=== PATIENT | male | born 1955 | race Two or more races ===

== ENCOUNTER 2019-07-28 07:44 | Emergency (ER) | payer OTHER ==
[~2019-07-28] VITALS: Ht 167.6 cm; Wt 54.4 kg
[~2019-07-28 07:44] MED LIST: ALLEGRA-D1 TAB.SR . PO; AURALGAN OTIC S14 ML OT; DIOVAN HCT 80/11 TA1; TRAMADOL HCL-AP1 TAB PO
[2019-07-28] MEDS ORDERED: ZITHROMAX500 MG PO (08:41)
== END 2019-07-28 09:08 | disposition home or self-care (01) ==
LOC: ER 07:44
DX: S01.321A Laceration with foreign body of right ear, initial encounter (principal); W45.8XXA Other foreign body or object entering through skin, initial encounter; Y93.89 Activity, other specified; Y92.89 Other specified places as the place of occurrence of the external cause; Y99.8 Other external cause status

== ENCOUNTER 2021-01-24 03:03 | Emergency (ER) | payer OTHER ==
[~2021-01-24] VITALS: Ht 167.6 cm; Wt 55.3 kg
[~2021-01-24 03:03] MED LIST changes: +ZITHROMAX500 MG PO
[2021-01-24] MEDS ORDERED: CIPRO500 MG PO (06:30)
[2021-01-27] MEDS ORDERED: CIPRO500 MG PO (02:08)
== END 2021-01-24 06:41 | disposition home or self-care (01) ==
LOC: ER 03:03
DX: N20.0 Calculus of kidney (principal); R10.32 Left lower quadrant pain

== ENCOUNTER → 2021-01-27 | Emergency (ER) | payer OTHER ==
[~2021-01-27] VITALS: Ht 167.6 cm; Wt 55.3 kg
[~2021-01-27] MED LIST changes: +CIPRO500 MG PO
== END | disposition home or self-care (01) ==
LOC: ER 00:18
DX: N20.0 Calculus of kidney (principal)

== ENCOUNTER 2023-02-25 05:30 | Day surgery (SDC) | payer OTHER ==
[~2023-02-25] VITALS: Ht 167.6 cm; Wt 56.7 kg
== END 2023-02-25 11:20 | disposition home or self-care (01) ==
LOC: CIR.AMB 05:30
PROVIDERS: ATTEND Specialist
DX: K40.90 Unilateral inguinal hernia, without obstruction or gangrene, not specified as recurrent (principal); Z20.822 Contact with and (suspected) exposure to COVID-19; Z88.2 Allergy status to sulfonamides; Z88.6 Allergy status to analgesic agent
CPT/HCPCS: 49505; C1781

== ENCOUNTER 2023-07-25 10:00 | Inpatient (IN) | payer OTHER ==
[~2023-07-25] VITALS: Ht 167.6 cm; Wt 54.0 kg
[~2023-07-25 10:00] MED LIST changes: +CHILDREN'S ASPI81 MG PO
[2023-07-25] MEDS ORDERED: GENTAMICIN SULFATE 40 MG/ML VIAL ONE (13:02)
[2023-07-25] MEDS ORDERED: CHLORHEXIDINE GLUCONATE 120 ML BOTTLE TOP ONE ×2 (16:21→17:15)
[2023-07-25] MEDS ORDERED: GENTAMICIN SULFATE 40 MG/ML VIAL IV SCH ×2 (16:54→18:44)
[2023-07-25] MEDS ORDERED: CEFAZOLIN SODIUM 1,000 MG VIAL IV SCH (17:00)
[2023-07-25] MEDS ORDERED: GENTAMICIN SULFATE 40 MG/ML VIAL IV ONE (17:15)
[2023-07-25] MEDS ORDERED: ONDANSETRON HCL 2 MG/ML VIAL IV PRN (18:45)
[2023-07-25] MEDS ORDERED: MEPERIDINE HCL/PF 50 MG/ML VIAL IM PRN (18:45)
[2023-07-25] MEDS ORDERED: 0.9 % SODIUM CHLORIDE 1,000 ML IV SCH (18:45)
[2023-07-26] MEDS ORDERED: TAMSULOSIN HCL 0.4 MG CAP PO SCH (09:00)
[2023-07-26 09:19] LABS: CREATININE SERUM 0.83 mg/dL (0.70-1.30); GFR 92.41; POTASSIUM 4.05 mEq/L (3.5-5.1)
[2023-07-26 09:21] LABS: HEMATOCRIT 41.6 % (39.0-48.0); HEMOGLOBIN 14.3 g/dL (13-16.00); MEAN CELL VOLUME 97.1 fL (80.0-100.00); MEAN CORPUSCULAR HEMOGLOBIN 33.4 pg (27.00-32.0); MEAN CORPUSCULAR HGB CONC 34.4 g/dl (32.0-36.0); PLATELET COUNT 197 K/uL (150-450); RED BLOOD COUNT 4.28 M/uL (4.00-6.00); RED CELL DISTRIBUTION WIDTH 13.5 % (11.5-14.5)
== END 2023-07-26 13:21 | disposition home or self-care (01) | DRG 714 ==
LOC: CIR.AMB 10:00 → EDSTATUS 11:15 → SURG 11:15 → CIR.AMB 14:15 → O/R 19:24 → SURH 19:30
PROVIDERS: ADMIT Urology; ATTEND Urology
PROC: 0VB08ZX Excision of Prostate, Via Natural or Artificial Opening Endoscopic, Diagnostic (ICD-10-PCS; 2023-07-25)
PROC: 0TFB8ZZ Fragmentation in Bladder, Via Natural or Artificial Opening Endoscopic (ICD-10-PCS; 2023-07-25)
PROC: 0VT08ZZ Resection of Prostate, Via Natural or Artificial Opening Endoscopic (ICD-10-PCS; principal; 2023-07-25 14:15)
DX: C61 Malignant neoplasm of prostate (principal); N40.1 Benign prostatic hyperplasia with lower urinary tract symptoms; R33.8 Other retention of urine; Z20.822 Contact with and (suspected) exposure to COVID-19; N21.0 Calculus in bladder